=== PATIENT | female | born 1940 | race Caucasian/White ===

== ENCOUNTER → 2016-09-15 | Outpatient (CLI) | payer MEDICARE ==
--- NOTE | 2016-09-15 15:47 | REPMRS ---
Patient History The patient states she had a clinical breast exam in 09/2016. Patient is postmenopausal. Family history of colorectal cancer in father at age 50 or over, colorectal cancer in paternal aunt at age 50 or over, and unknown cancer in paternal grandmother at age 50 or over. Digital Woman Screen Mammo: September 15, 2016 - Exam #: [id number] Bilateral CC and MLO view(s) were taken. Technologist: Nikki Ann Technologist Prior study comparison: January 07, 2015, digital woman screen mammo performed at [facility]. February 25, 2012, digital woman screen mammo performed at [facility]. FINDINGS: There are scattered fibroglandular densities. There has been no change in the appearance of the mammogram from the prior studies. There is a mild amount of residual fibroglandular tissue which is fairly symmetric. There is no interval development of dominant mass, architectural distortion, or clustered microcalcification suggestive of malignancy. ASSESSMENT: BI-RADS/ACR category 1 mammogram. Negative. Recommendation Routine screening mammogram in 1 year (for women over age 40). This mammogram was interpreted with the aid of an FDA-approved computer-aided dectection system. Electronically Signed By: Israel Cash MD 09/15/16 0812
== END ==
LOC: M WHC 14:40
PROVIDERS: ATTEND Nurse Practitioner Family
DX: Z01.419 Encounter for gynecological examination (general) (routine) without abnormal findings (principal); Z12.31 Encounter for screening mammogram for malignant neoplasm of breast; Z78.0 Asymptomatic menopausal state; R30.0 Dysuria; Z12.12 Encounter for screening for malignant neoplasm of rectum
CPT/HCPCS: 81002; 82270; 87086; G0101; G0202

== ENCOUNTER → 2016-10-08 | Outpatient (CLI) | payer MEDICARE ==
[2016-10-08 14:09] LABS: BASO % 0.7 % (0.0-1.0); EOS # 0.2 K/mm3 (0.0-0.50); EOS % 3.5 % (0.0-3.0); LARGE UNSTAINED CELL # 0.1 K/mm3 (0.0-0.4); LARGE UNSTAINED CELL % 1.4 % (0.0-4.0); LYMPH # 1.5 K/mm3 (1.5-4.5); MEAN CORPUSCULAR HEMOGLOBIN 31.8 pg (27.0-33.0); MEAN CORPUSCULAR VOLUME 93.5 fl (80.0-96.0); MONO # 0.4 K/mm3 (0.0-0.8); MONO % 6.7 % (0.0-5.0); NEUTROPHILS # 3.9 K/mm3 (1.8-7.7); NEUTROPHILS % 64.5 % (36.0-66.0); PLATELET COUNT, AUTOMATED 156 k/mm3 (150-450); RED CELL DISTRIBUTION WIDTH 12.8 % (11.5-14.5)
[2016-10-08 14:30] LABS: CALCIUM LEVEL 8.8 MG/DL (8.8-10.2); CREATININE FOR GFR 1.13 MG/DL (0.55-1.02); GLOMERULAR FILTRATION RATE 49.6 (>39)
== END ==
LOC: M LAB 13:21
PROVIDERS: ATTEND Internal Medicine Cardiovascular Disease
DX: Z01.818 Encounter for other preprocedural examination (principal)

== ENCOUNTER → 2016-10-15 | Outpatient (CLI) | payer MEDICARE ==
[2016-10-15 17:35] LABS: CREATININE FOR GFR 1.13 MG/DL (0.55-1.02); GLOMERULAR FILTRATION RATE 49.6 (>39)
== END ==
LOC: M SMT 13:44
PROVIDERS: ATTEND Internal Medicine Cardiovascular Disease
DX: Z00.00 Encounter for general adult medical examination without abnormal findings (principal)

== ENCOUNTER → 2016-12-01 | Outpatient (CLI) | payer MEDICARE ==
--- NOTE | 2016-12-01 09:04 | REP ---
Limited abdominal ultrasound for left upper quadrant pain: Ultrasonography of the abdominal left upper quadrant is performed. The left kidney is normal size measuring 9.4 x 5.4 x 3.9 cm. There is no left renal hydronephrosis, calculus, mass or cyst. The spleen is normal size measuring 10.0 x 2.6 x 8.4 cm. The splenic parenchyma is homogeneous. There is a small calcification in the upper pole of the spleen, likely a granuloma. There is no ascites. Impression: Essentially negative abdominal left upper quadrant ultrasound. Signed by Israel Chamorro MD 12/01/2016 08:56 A
== END ==
LOC: M RAD 07:41
PROVIDERS: ATTEND Internal Medicine Gastroenterology
DX: R10.12 Left upper quadrant pain (principal)

== ENCOUNTER → 2016-12-06 | Outpatient (RCR) | payer MEDICARE | LOC: M CR 11-26 07:43 | PROVIDERS: ATTEND Physician Assistant | DX: I25.10 Atherosclerotic heart disease of native coronary artery without angina pectoris (principal); Z95.5 Presence of coronary angioplasty implant and graft ==

== ENCOUNTER → 2016-12-16 | Outpatient (CLI) | payer MEDICARE ==
--- NOTE | 2016-12-17 08:58 | DEXA ---
AP SPINE L1 - L4 1.059 -1.1 0.7 LT FEMUR TOTAL 0.788 -1.7 0.2 RT FEMUR TOTAL 0.797 -1.7 0.2 TOTAL BODY TOTAL OTHER DUAL FEMUR FRAX* ASSESSMENT Risk factors: Not performed. 10 year probability of fracture Major osteoporotic fracture % Hip fracture % COMMENTS: There is low bone density of the spine and hips. The decreased density of the spine does represent a significant change. The decreased density of the left hip does represent a significant change. The decreased density of the right hip does represent a significant change. The density of the spine is decreased 5.4% since the initial exam on 06/2000. The spine density has decreased 5.3% since the most recent exam on 02/2012. The density of the left hip has decreased 10.7% since the initial exam on 2000. The density of the left hip has decreased 6.5% since the most recent exam on 2011. The density of the right hip has decreased 10.3% since the initial exam on 2000. The density of the right hip has decreased 7.9% since the most recent exam on . FOLLOW-UP: Recommendation for the next bone density exam: 2 years. CHRISTOPHER
== END ==
LOC: M WHC 07:58
PROVIDERS: ATTEND Nurse Practitioner Family
DX: M85.9 Disorder of bone density and structure, unspecified (principal)

== ENCOUNTER 2016-12-31 08:46 | Outpatient (RCR) | payer MEDICARE | END 2017-01-06 | LOC: M CR 08:46 | PROVIDERS: ATTEND Physician Assistant | DX: Z51.89 Encounter for other specified aftercare (principal); I25.10 Atherosclerotic heart disease of native coronary artery without angina pectoris; Z95.5 Presence of coronary angioplasty implant and graft ==

== ENCOUNTER 2017-01-21 07:57 | Outpatient (RCR) | payer MEDICARE | END 2017-02-05 | LOC: M CR 07:57 | PROVIDERS: ATTEND Physician Assistant | DX: Z51.89 Encounter for other specified aftercare (principal); Z95.5 Presence of coronary angioplasty implant and graft; I25.10 Atherosclerotic heart disease of native coronary artery without angina pectoris ==

== ENCOUNTER → 2017-12-07 | Outpatient (CLI) | payer MEDICARE | LOC: M RAD 11:17 | DX: I70.302 Unspecified atherosclerosis of unspecified type of bypass graft(s) of the extremities, left leg (principal) | CPT/HCPCS: 93926 ==

== ENCOUNTER → 2018-03-08 | Outpatient (CLI) | payer MEDICARE | LOC: M WHC 11:10 | DX: Z12.31 Encounter for screening mammogram for malignant neoplasm of breast (principal); Z80.0 Family history of malignant neoplasm of digestive organs | CPT/HCPCS: 77067 ==

== ENCOUNTER → 2018-03-27 | Outpatient (REF) | payer MEDICARE | LOC: M LAB REF 16:46 | DX: R30.0 Dysuria (principal) | CPT/HCPCS: 87186 ==

== ENCOUNTER → 2018-11-03 | Outpatient (CLI) | payer MEDICARE ==
--- NOTE | 2018-11-03 12:13 | REP ---
Clinical: High risk factors including hypertension, heart disease, history smoking. Technique: Cash scale and color Doppler evaluation using linear high frequency transducer Findings: Two-dimensional cash scale and color images demonstrate moderate to significant mixed atheromatous plaquing along the bilateral carotid arteries with areas of appreciable narrowing and associated moderate spectral broadening. Normal flow direction is appreciated in the bilateral vertebral arteries. RIGHT (cm/s) LEFT (cm/s) ICA peak systolic velocity 100.3 93.2 ICA diastolic velocity 17.3 21.5 ECA peak systolic velocity 124.0 101.7 CCA peak systolic velocity 85.1 62.7 ICA/CCA ratio 1.2 1.5 Impression: Moderate atherosclerotic changes with visible areas of narrowing noted bilaterally. Based on set standards narrowing is felt to be within the less than 50% range bilaterally as well as approaching the 50-69% range within the right external carotid artery. These values may be underestimated and further investigation including MRA may be of value. Electronically Signed by Memo Mccann MD 11/03/2018 12:04 P
--- NOTE | 2018-11-03 12:15 | REP ---
The left lower extremity arterial duplex ultrasound: Left brachial artery peak systole: 130 mmHg. Left dorsalis pedis peak systole: 160 mmHg. Left BACK FEEDER PLYWOOD LAYUP LINE peak systole: 140 mmHg. СВЕТЛАНА: 1.1. 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 Duplex ultrasound is performed up to the left common iliac artery. No stent is identified by ultrasound. Soft and hard atheromatous plaque is identified throughout the left lower extremity. There are biphasic wave forms throughout the left lower extremity. No significant stenosis is identified. Electronically Signed by Israel Chamorro MD 11/03/2018 12:06 P
== END ==
LOC: M RAD 09:20
PROVIDERS: ATTEND Surgery Vascular Surgery
DX: I65.23 Occlusion and stenosis of bilateral carotid arteries (principal); I70.213 Atherosclerosis of native arteries of extremities with intermittent claudication, bilateral legs

== ENCOUNTER 2019-01-25 03:57 | Emergency (ER) | payer MEDICARE ==
[~2019-01-25] VITALS: Ht 152.4 cm; Wt 65.0 kg
[2019-01-25 04:32] LABS: BASO # 0.1 10^3/uL (0.0-0.2); BASO % 0.9 % (0.0-1.0); EOS # 0.4 10^3/uL (0.0-0.5); EOS % 5.2 % (0.0-3.0); HEMATOCRIT 41.7 % (36.0-47.0); HEMOGLOBIN 13.9 g/dl (12.0-15.5); LYMPH # 1.3 10^3/uL (1.5-5.0); LYMPH % 18.6 % (24.0-44.0); MEAN CORPUSCULAR HEMOGLOBIN 31.2 pg (27.0-33.0); MEAN CORPUSCULAR HGB CONC 33.3 g/dl (32.0-36.5); MEAN CORPUSCULAR VOLUME 93.5 fl (80.0-96.0); MONO # 0.8 10^3/uL (0.0-0.8); MONO % 11.5 % (0.0-5.0); NEUTROPHILS # 4.4 10^3/uL (1.5-8.5); NEUTROPHILS % 63.5 % (36.0-66.0); PLATELET COUNT, AUTOMATED 156 10^3/uL (150-450); RED BLOOD COUNT 4.46 10^6/uL (4.00-5.40); WHITE BLOOD COUNT 6.9 10^3/uL (4.0-10.0)
[2019-01-25] MEDS ORDERED: PANT40TA3 (04:37)
[2019-01-25] MEDS ORDERED: CARV3.12 (04:37)
[2019-01-25] MEDS ORDERED: ATOR40TA75 (04:37)
[2019-01-25] MEDS ORDERED: LEVO50TA5 (04:37)
[2019-01-25] MEDS ORDERED: AMLO10TA5 (04:37)
[2019-01-25] MEDS ORDERED: LOSA50TA88 (04:37)
[2019-01-25] MEDS ORDERED: ASPI81TA85 PO (04:37)
[2019-01-25] MEDS ORDERED: CLOP75TA2 (04:37)
[2019-01-25] MEDS ORDERED: NITR0.4S14 (04:37)
[2019-01-25] MEDS ORDERED: CHLO125TA PO (04:37)
[2019-01-25] MEDS ORDERED: ASPIRIN 325 MG TAB PO ONE (04:45)
[2019-01-25 04:46] LABS: INR 0.95; PROTHROMBIN TIME 12.4 SECONDS (11.8-14.0)
[2019-01-25 04:57] LABS: ALBUMIN 4.2 GM/DL (3.2-5.2); ALT/SGPT 24 U/L (12-78); BILIRUBIN,DIRECT 0.1 MG/DL (0.0-0.2); BILIRUBIN,TOTAL 0.4 MG/DL (0.2-1.0); BLOOD UREA NITROGEN 29 MG/DL (7-18); CALCIUM LEVEL 8.6 MG/DL (8.8-10.2); CARBON DIOXIDE LEVEL 30 MEQ/L (21-32); CHLORIDE LEVEL 100 MEQ/L (98-107); CK-MB VALUE MASS 1.8 NG/ML (<3.6); CPK CREATINE PHOSPHOKINASE 71 U/L (26-192); CREATININE FOR GFR 0.98 MG/DL (0.55-1.30); GLOMERULAR FILTRATION RATE 58.1 (>32); GLUCOSE, FASTING 114 MG/DL (70-100); LIPASE 120 U/L (73-393); MB/CK RELATIVE INDEX 2.54 (< OR =4); POTASSIUM SERUM 3.4 MEQ/L (3.5-5.1); SODIUM LEVEL 138 MEQ/L (136-145); TOTAL PROTEIN 7.1 GM/DL (6.4-8.2); TROPONIN I < 0.02 NG/ML (< 0.10)
[2019-01-25] MEDS ORDERED: ISOVUE-370 76% 100ML VIAL (Q9967) As Ordered ONE (05:23)
--- NOTE | 2019-01-25 06:19 | REPVR ---
PROCEDURE INFORMATION: Exam: CT Chest With Contrast Exam date and time: 01/25/2019 5:01 AM Clinical history: 78 years old, female; Pain; Other: Back; Additional info: Back/arm pain TECHNIQUE: Imaging protocol: Computed tomography of the chest with intravenous contrast. 3D rendering: MIP reconstructed images were created and reviewed. Radiation optimization: All CT scans at this facility use at least one of these dose optimization techniques: automated exposure control; mA and/or kV adjustment per patient size (includes targeted exams where dose is matched to clinical indication); or iterative reconstruction. Contrast material: ISO; Contrast volume: 75 ml; Contrast route: AC; COMPARISON: CT Chest with contrast 11/16/2013 1:32 AM FINDINGS: Lungs: Minimal scattered atelectasis or scar. Pleural space: Unremarkable. No pneumothorax. No pleural effusion. Heart: Status post sternotomy and CABG. Pulmonary arteries: The main pulmonary artery measures 23 mm. No pulmonary embolism is identified. Aorta: The ascending thoracic aorta measures 30 mm. No gross or obvious aortic dissection is identified, particularly distal to the mid arch. Artifact and image degradation precludes detailed evaluation of the ascending thoracic aorta. Lymph nodes: Unremarkable. No enlarged lymph nodes. Bones/joints: Mild degenerative spurring throughout the thoracic spine. Soft tissues: Unremarkable. Kidneys and ureters: There is a right renal cyst measuring 30 mm. IMPRESSION: 1. There has been little change from 11/16/2013. 2. Status post sternotomy and CABG. 3. Otherwise negative CT chest. No pulmonary embolism is identified. Electronically signed by: Richard Muir On 01/25/2019 06:18:44 AM
--- NOTE | 2019-01-25 07:58 | REP ---
Portable chest, 04:27 a.m., single AP view with the patient upright: Comparisons are 09/16/2012 and 11/15/2013. The lung barth are clear. The cardiac size is normal. The bhupendra, mediastinum, and skeletal structures are unremarkable. There are sternotomy wires, unchanged to 11/15/2013. Impression: Negative portable chest. Electronically Signed by Israel Chamorro MD 01/25/2019 07:50 A
[2019-01-25 08:49] LABS: CK-MB VALUE MASS 1.5 NG/ML (<3.6); CPK CREATINE PHOSPHOKINASE 63 U/L (26-192); MB/CK RELATIVE INDEX 2.38 (< OR =4); TROPONIN I < 0.02 NG/ML (< 0.10)
[2019-01-25 09:03] VITALS: BP 156/71
--- NOTE | 2019-01-25 21:36 | ECGEPIP ---
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
--- NOTE | 2019-01-25 21:38 | ECGEPIP ---
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
== END 2019-01-25 09:20 | disposition home or self-care (01) ==
LOC: M ED 03:57
DX: M54.6 Pain in thoracic spine (principal); I10 Essential (primary) hypertension; E78.5 Hyperlipidemia, unspecified; Z95.1 Presence of aortocoronary bypass graft; Z95.5 Presence of coronary angioplasty implant and graft; Z79.899 Other long term (current) drug therapy; Z79.890 Hormone replacement therapy; Z79.82 Long term (current) use of aspirin; Z79.01 Long term (current) use of anticoagulants; Z87.891 Personal history of nicotine dependence
CPT/HCPCS: 36415; 71045; 71260; 80048; 80076; 82550; 82553; 83690; 84484; 85025; 85610; 93005; 93041; 94760; 99285; Q9967

== ENCOUNTER → 2019-01-30 | Outpatient (REF) | payer MEDICARE ==
[~2019-01-30] MED LIST: AMLO10TA5; ASPI81TA85 PO; ATOR40TA75; CARV3.12; CHLO125TA PO; CLOP75TA2; LEVO50TA5; LOSA50TA88; NITR0.4S14; PANT40TA3
== END ==
LOC: M LAB REF 14:06
PROVIDERS: ATTEND Physician Assistant
DX: N30.01 Acute cystitis with hematuria (principal)

== ENCOUNTER → 2019-02-12 | Outpatient (REF) | payer MEDICARE | LOC: M LAB REF 16:24 | PROVIDERS: ATTEND Registered Nurse | DX: N39.0 Urinary tract infection, site not specified (principal) ==

== ENCOUNTER → 2019-03-08 | Outpatient (CLI) | payer MEDICARE ==
--- NOTE | 2019-03-08 15:25 | REPMRS ---
Patient History The patient states she had a clinical breast exam in 02/2019. Patient is postmenopausal. Family history of colorectal cancer at age 50 or over in father, colorectal cancer at age 50 or over in paternal aunt. No Hormone Replacement Therapy 3D TOMOSYNTHESIS WAS PERFORMED. [facility] lifetime risk for breast cancer is 1.6%. Digital Woman Screen Mammo: March 08, 2019 - Exam #: [id number] Bilateral CC and MLO view(s) were taken. Technologist: Lucina Watson, Technologist Prior study comparison: March 08, 2018, bilateral digital woman screen mammo performed at [facility]. September 15, 2016, digital woman screen mammo performed at [facility]. FINDINGS: The breast tissue is heterogeneously dense. This may lower the sensitivity of mammography. There has been no change in the appearance of the mammogram from the prior studies. There is a moderate amount of residual fibroglandular tissue which is fairly symmetric. There is no interval development of dominant mass, areas of architectural distortion, or clustered microcalcification typical of malignancy. Assessment: BI-RADS/ACR category 1 mammogram. Negative Mammogram. Recommendation Routine screening mammogram in 1 year (for women over age 40). This mammogram was interpreted with the aid of an FDA-approved computer-aided dectection system. Electronically Signed By: Israel Cash MD 03/08/19 1126
== END ==
LOC: M WHC 10:16
PROVIDERS: ATTEND Nurse Practitioner Family
DX: Z01.419 Encounter for gynecological examination (general) (routine) without abnormal findings (principal); Z12.31 Encounter for screening mammogram for malignant neoplasm of breast; Z78.0 Asymptomatic menopausal state; Z80.0 Family history of malignant neoplasm of digestive organs
CPT/HCPCS: 77063; 77067; 81002; G0101

== ENCOUNTER → 2019-03-14 | Outpatient (REF) | payer MEDICARE | LOC: M LAB REF 12:34 | PROVIDERS: ATTEND Internal Medicine | DX: R31.0 Gross hematuria (principal) ==

== ENCOUNTER → 2019-03-15 | Outpatient (REF) | payer MEDICARE | LOC: M LAB REF 12:57 | PROVIDERS: ATTEND Internal Medicine | DX: R31.0 Gross hematuria (principal) ==

== ENCOUNTER → 2019-03-26 | Outpatient (REF) | payer MEDICARE | LOC: M LAB REF 12:35 | PROVIDERS: ATTEND Registered Nurse | DX: R30.0 Dysuria (principal) ==

== ENCOUNTER → 2020-02-28 | Outpatient (CLI) | payer MEDICARE ==
[~2020-02-28] MED LIST changes: -AMLO10TA5; +AMLO1TAB25; -ASPI81TA85 PO; +ASPI81TA86 PO; +PANT40TA29; -PANT40TA3
--- NOTE | 2020-02-28 14:52 | REPMRS ---
Patient History The patient states she had a clinical breast exam in February 2020.Family history of colorectal cancer at age 50 or over in father, colorectal cancer at age 50 or over in paternal aunt. No Hormone Replacement Therapy 3D TOMOSYNTHESIS WAS PERFORMED. [facility] Volpara breast density b. Digital Woman Screen Mammo: February 28, 2020 - Exam #: [id number] Bilateral CC and MLO view(s) were taken. Technologist: Jackelin Patiño, Technologist Prior study comparison: March 08, 2019, bilateral digital woman screen mammo performed at [facility]. March 08, 2018, bilateral digital woman screen mammo performed at [facility]. FINDINGS: There are scattered fibroglandular densities. There has been no change in the appearance of the mammogram from the prior studies. There is a mild amount of residual fibroglandular tissue which is fairly symmetric. There is no interval development of dominant mass, architectural distortion, or clustered microcalcification suggestive of malignancy. Assessment: BI-RADS/ACR category 1 mammogram. Negative Mammogram. Recommendation Routine screening mammogram in 1 year (for women over age 40). This mammogram was interpreted with the aid of an FDA-approved computer-aided dectection system. Electronically Signed By: Israel Cash MD 02/28/20 [id number]
== END ==
LOC: M WHC 08:59
PROVIDERS: ATTEND Nurse Practitioner Family
DX: Z12.31 Encounter for screening mammogram for malignant neoplasm of breast (principal); Z80.0 Family history of malignant neoplasm of digestive organs

== ENCOUNTER → 2020-12-29 | Outpatient (CLI) | payer MEDICARE ==
[2020-12-29 16:24] LABS: HEMATOCRIT 40.2 % (36.0-47.0); HEMOGLOBIN 13.2 g/dl (12.0-15.5); MEAN CORPUSCULAR HEMOGLOBIN 31.1 pg (27.0-33.0); MEAN CORPUSCULAR HGB CONC 32.8 g/dl (32.0-36.5); MEAN CORPUSCULAR VOLUME 94.8 fl (80.0-96.0); PLATELET COUNT, AUTOMATED 156 10^3/uL (150-450); RED BLOOD COUNT 4.24 10^6/uL (4.00-5.40); WHITE BLOOD COUNT 6.7 10^3/uL (4.0-10.0)
[2020-12-29 16:51] LABS: CALCIUM LEVEL 8.7 MG/DL (8.8-10.2); CREATININE FOR GFR 1.17 MG/DL (0.55-1.30); GLOMERULAR FILTRATION RATE 47.1 (>32)
== END ==
LOC: M WUC 10:57
PROVIDERS: ATTEND Physician Assistant
DX: I25.10 Atherosclerotic heart disease of native coronary artery without angina pectoris (principal)

== ENCOUNTER → 2021-01-19 | Outpatient (CLI) | payer MEDICARE | LOC: M LABSMTC 11:04 | PROVIDERS: ATTEND Internal Medicine Cardiovascular Disease | DX: Z20.822 Contact with and (suspected) exposure to COVID-19 (principal) ==

== ENCOUNTER → 2021-01-27 | Outpatient (CLI) | payer MEDICARE ==
[2021-01-27 12:45] LABS: CREATININE FOR GFR 0.87 MG/DL (0.55-1.30); GLOMERULAR FILTRATION RATE > 60.0 (>32)
== END ==
LOC: M WUC 10:00
PROVIDERS: ATTEND Internal Medicine Cardiovascular Disease
DX: R79.89 Other specified abnormal findings of blood chemistry (principal)

== ENCOUNTER 2021-10-24 11:56 | Emergency (ER) | payer MEDICARE ==
[~2021-10-24] VITALS: Ht 154.9 cm; Wt 63.3 kg
[~2021-10-24 11:56] MED LIST changes: +LOSA50TA28; -LOSA50TA88
[2021-10-24 12:55] LABS: BASO % 0.5 % (0.0-1.0); EOS # 0.2 10^3/uL (0.0-0.5); EOS % 2.5 % (0.0-3.0); HEMATOCRIT 42.9 % (36.0-47.0); HEMOGLOBIN 14.2 g/dl (12.0-15.5); LYMPH # 1.6 10^3/uL (1.5-5.0); LYMPH % 20.9 % (24.0-44.0); MEAN CORPUSCULAR HEMOGLOBIN 30.7 pg (27.0-33.0); MEAN CORPUSCULAR HGB CONC 33.1 g/dl (32.0-36.5); MEAN CORPUSCULAR VOLUME 92.7 fl (80.0-96.0); MONO # 0.7 10^3/uL (0.0-0.8); MONO % 9.3 % (2.0-8.0); NEUTROPHILS # 5.1 10^3/uL (1.5-8.5); NEUTROPHILS % 66.4 % (36.0-66.0); PLATELET COUNT, AUTOMATED 176 10^3/uL (150-450); RED BLOOD COUNT 4.63 10^6/uL (4.00-5.40); WHITE BLOOD COUNT 7.7 10^3/uL (4.0-10.0)
[2021-10-24 13:18] LABS: CK-MB VALUE MASS < 1.0 NG/ML (<3.6); CPK CREATINE PHOSPHOKINASE 62 U/L (26-192); MB/CK RELATIVE INDEX 1.61 (< OR =4)
[2021-10-24 13:30] LABS: ALBUMIN 3.9 GM/DL (3.2-5.2); BILIRUBIN,DIRECT 0.2 MG/DL (0.0-0.2); BILIRUBIN,TOTAL 0.5 MG/DL (0.2-1.0); CALCIUM LEVEL 8.5 MG/DL (8.8-10.2); CREATININE FOR GFR 0.95 MG/DL (0.55-1.30); GLOMERULAR FILTRATION RATE 59.8 (>32); POTASSIUM SERUM 3.9 MEQ/L (3.5-5.1); THYROID STIMULATING HORMONE 2.56 uIU/ML (0.358-3.740); TOTAL PROTEIN 7.1 GM/DL (6.4-8.2)
[2021-10-24 16:45] VITALS: BP 136/77
== END 2021-10-24 17:40 | disposition home or self-care (01) ==
LOC: M ED 11:56
DX: I95.1 Orthostatic hypotension (principal); I10 Essential (primary) hypertension; E78.5 Hyperlipidemia, unspecified; Z86.79 Personal history of other diseases of the circulatory system; Z86.16 Personal history of COVID-19; Z79.899 Other long term (current) drug therapy

== ENCOUNTER → 2021-11-13 | Outpatient (CLI) | payer MEDICARE | LOC: M WHC 07:25 | PROVIDERS: ATTEND Specialist | DX: Z12.11 Encounter for screening for malignant neoplasm of colon (principal) ==

== ENCOUNTER → 2022-09-13 | Outpatient (CLI) | payer MEDICARE | LOC: M PLAIMG 13:35 | PROVIDERS: ATTEND Internal Medicine | DX: R10.13 Epigastric pain (principal); R63.0 Anorexia ==

== ENCOUNTER → 2022-09-20 | Outpatient (CLI) | payer MEDICARE | LOC: M WHC 13:32 | PROVIDERS: ATTEND Surgery Vascular Surgery | DX: I65.23 Occlusion and stenosis of bilateral carotid arteries (principal) ==

== ENCOUNTER → 2022-10-26 | Outpatient (CLI) | payer MEDICARE | LOC: M RAD 12:05 | PROVIDERS: ATTEND Internal Medicine | DX: R22.9 Localized swelling, mass and lump, unspecified (principal) ==

== ENCOUNTER → 2023-02-15 | Outpatient (CLI) | payer MEDICARE | LOC: M WHC 09:00 | PROVIDERS: ATTEND Specialist | DX: Z12.31 Encounter for screening mammogram for malignant neoplasm of breast (principal) ==

== ENCOUNTER → 2023-10-12 | Outpatient (CLI) | payer MEDICARE | LOC: M PLAIMG 13:13 | PROVIDERS: ATTEND Internal Medicine | DX: R91.1 Solitary pulmonary nodule (principal) ==

== ENCOUNTER → 2023-10-14 | Outpatient (CLI) | payer MEDICARE | LOC: M RAD 11:07 | PROVIDERS: ATTEND Surgery Vascular Surgery | DX: I65.29 Occlusion and stenosis of unspecified carotid artery (principal) ==

== ENCOUNTER → 2023-11-07 | Outpatient (CLI) | payer MEDICARE | LOC: M RAD 10:02 | PROVIDERS: ATTEND Physician Assistant | DX: I73.9 Peripheral vascular disease, unspecified (principal); Z98.62 Peripheral vascular angioplasty status ==

== ENCOUNTER → 2024-02-27 | Outpatient (CLI) | payer MEDICARE | LOC: M WHC 09:01 | PROVIDERS: ATTEND Specialist | DX: Z12.31 Encounter for screening mammogram for malignant neoplasm of breast (principal) ==

== ENCOUNTER → 2024-08-22 | Outpatient (CLI) | payer MEDICARE | LOC: M RAD 12:05 | PROVIDERS: ATTEND Physician Assistant | DX: I73.9 Peripheral vascular disease, unspecified (principal); Z98.62 Peripheral vascular angioplasty status ==

== ENCOUNTER → 2025-02-27 | Outpatient (CLI) | payer MEDICARE | LOC: M WHC 07:48 | PROVIDERS: ATTEND Internal Medicine | DX: Z12.31 Encounter for screening mammogram for malignant neoplasm of breast (principal); R92.323 Mammographic fibroglandular density, bilateral breasts ==

== ENCOUNTER → 2025-03-19 | Outpatient (CLI) | payer MEDICARE ==
[~2025-03-19] MED LIST changes: -CARV3.12; +CARV3.12 PO
== END ==
LOC: M PLARAD 13:08
PROVIDERS: ATTEND Thoracic Surgery (Cardiothoracic Vascular Surgery)
DX: C34.12 Malignant neoplasm of upper lobe, left bronchus or lung (principal)
CPT/HCPCS: 78815; A9552

== ENCOUNTER → 2025-03-21 | Outpatient (CLI) | payer MEDICARE | LOC: M ONCR 13:57 | PROVIDERS: ATTEND Radiology Radiation Oncology | DX: C34.12 Malignant neoplasm of upper lobe, left bronchus or lung (principal); Z79.02 Long term (current) use of antithrombotics/antiplatelets; Z79.82 Long term (current) use of aspirin; Z79.899 Other long term (current) drug therapy; Z87.891 Personal history of nicotine dependence; Z80.0 Family history of malignant neoplasm of digestive organs; Z80.7 Family history of other malignant neoplasms of lymphoid, hematopoietic and related tissues ==

== ENCOUNTER 2025-03-29 10:23 | Outpatient (RCR) | payer MEDICARE | END 2025-04-07 | LOC: M ONCR 10:23 | PROVIDERS: ATTEND General Practice | DX: Z51.0 Encounter for antineoplastic radiation therapy (principal); C34.12 Malignant neoplasm of upper lobe, left bronchus or lung ==

== ENCOUNTER 2025-04-19 09:25 | Outpatient (RCR) | payer MEDICARE | END 2025-05-08 | LOC: M ONCR 09:25 | PROVIDERS: ATTEND General Practice | DX: Z51.0 Encounter for antineoplastic radiation therapy (principal); C34.12 Malignant neoplasm of upper lobe, left bronchus or lung ==